=== PATIENT | male | born 1985 | race Caucasian/White ===

== ENCOUNTER 2021-03-26 13:52 | Emergency (ER) | payer SELFPAY ==
[~2021-03-26] VITALS: Ht 180.3 cm; Wt 113.4 kg
[2021-03-26] MEDS ORDERED: ACETAMINOPHEN ES 500 MG TABLET ONE (14:16)
[2021-03-26] MEDS ORDERED: IBUPROFEN 600 MG TABLET ONE (14:17)
--- NOTE | 2021-03-26 14:18 | NUR ---
TAKEN TO CT
[2021-03-26] MEDS ORDERED: IBUPROFEN 600 MG TABLET PO ONE (14:30)
[2021-03-26] MEDS ORDERED: ACETAMINOPHEN ES 500 MG TABLET PO ONE (14:30)
--- NOTE | 2021-03-26 14:39 | NUR ---
DR LAINEZ AT BEDSIDE
[2021-03-26 14:47] VITALS: BP 146/93
[2021-03-26] MEDS ORDERED: HYDROCODONE/APAP 5/325MG TABLET ONE (16:04)
[2021-03-26] MEDS ORDERED: IBUP-1955 PO (16:14)
[2021-03-26] MEDS ORDERED: TRAM50TA2 PO (16:14)
--- NOTE | 2021-03-26 16:20 | NUR ---
Patient discharged to home in stable condition. Written and verbal after care instructions given. Patient verbalizes understanding of instruction.
[2021-03-26] MEDS ORDERED: HYDROCODONE/APAP 5/325MG TABLET PO ONE (16:30)
== END 2021-03-26 16:20 | disposition home or self-care (01) ==
LOC: ER 14:24
DX: S80.01XA Contusion of right knee, initial encounter (principal); S49.81XA Other specified injuries of right shoulder and upper arm, initial encounter; S09.8XXA Other specified injuries of head, initial encounter; F41.9 Anxiety disorder, unspecified; F17.200 Nicotine dependence, unspecified, uncomplicated; V03.99XA Pedestrian with other conveyance injured in collision with car, pick-up truck or van, unspecified whether traffic or nontraffic accident, initial encounter; Y93.89 Activity, other specified; Y92.89 Other specified places as the place of occurrence of the external cause; Y99.8 Other external cause status
CPT/HCPCS: 70450-TC; 72125-TC; 73030-TC; 73564-TC